=== PATIENT | female | born 1970 | race Native Hawaiian/Other Pacific Islander ===

== ENCOUNTER 2025-02-27 02:25 | Emergency (ER) | payer SELFPAY ==
[2025-02-27 02:45] VITALS: BP 115/74; PULSE 78; RESP 18; TEMP 36.6; O2SAT 99; BMI 25.8
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
[2025-02-27] MEDS: ondansetron 4 MG Tablet 8 MG PO (03:37)
[2025-02-27] MEDS: HYDROmorphone 0.5 MG/0.5 ML INJ 1 MG IM (03:38)
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
[2025-02-27] MEDS: tetanus-dipt-pertussis 0.5 mL SDV IM (03:41)
[2025-02-27] MEDS: lidocaine-epi 2% 20 mL INJ INJECTION (03:47)
[2025-02-27] MEDS: neomycin-poly-bacitracin oint 28 gm 1 APPLIC TOPICAL (04:05)
--- NOTE | 2025-02-27 04:15 | PC.NURSE ---
patient's garces washed with baby soap and warm water. thin layer of triple antibiotic ointment applied. patient tolerated well.
[2025-02-27 05:27] VITALS: BP 115/55; PULSE 80; RESP 15; O2SAT 94
== END 2025-02-27 05:15 | disposition home or self-care (01) ==
PROVIDERS: Emergency Provider Emergency Medicine
DX: S01.01XA Laceration without foreign body of scalp, initial encounter (principal); T22.20XA Burn of second degree of shoulder and upper limb, except wrist and hand, unspecified site, initial encounter; W01.198A Fall on same level from slipping, tripping and stumbling with subsequent striking against other object, initial encounter
CPT/HCPCS: 12002; 70450; 90471; 90715; 96372; 99284; J1171; J9999; Q0162